=== PATIENT | female | born 1965 | race Caucasian/White ===

== ENCOUNTER 2016-05-26 16:25 | Emergency (ER) | payer OTHER ==
[2016-05-26] MEDS ORDERED: methylPREDNISolone INJ 125 MG/2 ML VIAL (J2930) As Ordered ONE (18:54)
[2016-05-26] MEDS ORDERED: IPRATROPIUM 0.5MG/ALBUTEROL 2.5MG INH SOL UD 3ML (DUONEB)(J7620) As Ordered ONE (18:56)
--- NOTE | 2016-05-26 19:17 | REP ---
Clinical: Cough. Technique: PA and lateral. Comparison: None. Findings: Left lower lobe/retrocardiac infiltrate compatible with acute pneumonia. No effusion. No pneumothorax. Mediastinum and cardiac silhouette normal. Skeletal structures intact. Impression: Left lower lobe infiltrate compatible with pneumonia. Follow-up to resolution recommended. Signed by Jesu Owen MD 05/26/2016 07:09 P
[2016-05-26 19:28] LABS: BASO # 0.1 K/mm3 (0.0-0.2); BASO % 1.7 % (0.0-1.0); EOS % 0.6 % (0.0-3.0); LARGE UNSTAINED CELL # 0.1 K/mm3 (0.0-0.4); LARGE UNSTAINED CELL % 1.8 % (0.0-4.0); LYMPH # 1.2 K/mm3 (1.5-4.5); LYMPH % 13.6 % (24.0-44.0); MEAN CORPUSCULAR HGB CONC 33.7 g/dl (32.0-36.5); MEAN CORPUSCULAR VOLUME 86.1 fl (80.0-96.0); MONO # 0.3 K/mm3 (0.0-0.8); MONO % 4.1 % (0.0-5.0); NEUTROPHILS % 78.2 % (36.0-66.0); PLATELET COUNT, AUTOMATED 288 k/mm3 (150-450); RED CELL DISTRIBUTION WIDTH 13.9 % (11.5-14.5); WHITE BLOOD COUNT 7.7 K/mm3 (4.0-10.0)
[2016-05-26 19:45] LABS: ANION GAP 11 MEQ/L (8-16); BLOOD UREA NITROGEN 10 MG/DL (7-18); CALCIUM LEVEL 8.5 MG/DL (8.5-10.1); CARBON DIOXIDE LEVEL 25 MEQ/L (21-32); CHLORIDE LEVEL 105 MEQ/L (98-107); CREATININE FOR GFR 0.66 MG/DL (0.55-1.02); GLOMERULAR FILTRATION RATE > 60.0 (>51); GLUCOSE, FASTING 155 MG/DL (70-105); POTASSIUM SERUM 3.6 MEQ/L (3.5-5.1); SODIUM LEVEL 141 MEQ/L (136-145)
[2016-05-26] MEDS ORDERED: LevoFLOXacin 500 MG TABLET As Ordered ONE (20:09)
[2016-05-26] MEDS ORDERED: LevoFLOXacin 250 MG TABLET As Ordered ONE (20:09)
--- NOTE | 2016-05-26 20:48 | EDDOCDS ---
Physician Documentation [facility] Name: Rosita Suero Age: 50 yrs Sex: Female : 1965 Arrival Date: 05/26/2016 Time: 16:25 Bed I5 / M5 Private MD: Molina Nolasco D Disposition: 05/26/16 20:26 Discharged to Home/Self Care. Impression: Pneumonia, unspecified organism - LEFT LOWER LOBE. - Condition is Stable. - Discharge Instructions: Pneumonia, Adult. - Prescriptions for Levaquin 750 mg Oral Tablet - take 1 tablet by ORAL route once daily for 5 days; 5 tablet. Albuterol Sulfate 90 mcg/actuation Inhalation HFA Aerosol Inhaler - inhale 2 puff by INHALATION route every 4 hours As needed; 1 Inhaler. - Medication Reconciliation, Local Pharmacy Hours form. - Follow up: Molina Nolasco; When: 1 - 2 days; Reason: Recheck today's complaints, Continuance of care. - Problem is new. - Symptoms have improved. - Notes: USE MEDICATIONS INSTRUTCED, FOLLOW UP WITH YOUR DOCTOR ON SATURDAY, RETURN TO THE ER IF THE SYMPTOMS WORSEN OR BECOME CONCERNING Historical: - Allergies: No known drug Allergies; - Home Meds: 1. Sertraline 75 mg twice a day 2. albuterol sulfate 90 mcg/actuation Inhl aepb 2 puffs every 4-6 hours (Last dose: 05/26/2016 12:30) - PMHx: Depression; - PSHx: rotator cuff repair; Tubal ligation; - Social history: Smoking status: Patient uses tobacco products, heavy tobacco smoker. No barriers to communication noted, The patient speaks fluent Portuguese, Speaks appropriately for age. - Family history: Not pertinent. - : The pt / caregiver states he / she is not on anticoagulants. Home medication list is obtained from the patient. - Exposure Risk Screening:: None identified. 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 3 in. (160.02 cm) (R); 20:44 BP 114 / 61; Pulse 74; Resp 20 S; Temp 98.3(O); Pulse Ox 91% on R/A; ms2 16:26 Body Mass Index 40.74 (104.33 kg, 160.02 cm) dd6 MDM: 18:41 -Blood Culture (Adults Only), peripheral from different site, or from device/port/PICC ck7 etc. if present ordered. 18:41 IV Saline Lock ordered. ck7 18:41 Solu-MEDROL 125 mg IVP once ordered. ck7 18:41 Albuterol-Ipratropium 3 ml Inhalation once ordered. ck7 18:41 Call Respiratory ordered. ck7 18:42 Call Respiratory complete. ms18 18:43 CBC with Diff Ordered. EDMS 18:43 MED Profile Ordered. EDMS 18:43 -Blood Culture Ordered. EDMS 18:43 Chest, 2 View (pa\E\lat) Ordered. EDMS 18:55 -Blood Culture (Adults Only), peripheral from different site, or from device/port/PICC ajs etc. if present complete. 18:57 BLOOD CULTURES Ordered. EDMS 19:30 Financial registration complete. zo 20:06 CBC with Diff Reviewed. ck7 20:06 MED Profile Reviewed. ck7 20:06 Chest, 2 View (pa\E\lat) Reviewed. ck7 20:07 levofloxacin 750 mg PO once ordered. ck7 20:19 [facility] Payment Agreement was scanned into [employer] and attached to record. zo Administered Medications: 19:01 Drug: Solu-MEDROL 125 mg [Solu-Medrol 500 mg intravenous solution (125 mg)] Route: IVP; ms2 Site: left antecubital; 19:02 Drug: Albuterol-Ipratropium 3 ml [ipratropium-albuterol 0.5 mg-3 mg(2.5 mg base)/3 mL rs5 nebulization soln (3 mL)] Route: Inhalation; 20:12 Drug: levofloxacin 750 mg [levofloxacin 250 mg tablet (3 tabs)] Route: PO; ms2 Signatures: Dispatcher [employer] EDMS Ronald Williamson RN RN ms2 Krystal Peterson Amanda ajs Kwaczala, Christopher, ENW-C RPA-Cck7 Luis Vieyra RN RN jmb Mirna Wilson RN RN ms18 Baltazar Krishna RT rs5 The chart was reviewed and I authenticate all verbal orders and agree with the evaluation and treatment provided.Attachments: 20:19 [facility] Payment Agreement zo MTDD
--- NOTE | 2016-05-26 20:48 | EDDOCDS ---
Nurse's Notes [facility] Name: Rosita Suero Age: 50 yrs Sex: Female : 1965 Arrival Date: 05/26/2016 Time: 16:25 Bed I5 / M5 Private MD: Molina Nolasco D Diagnosis: Pneumonia, unspecified organism-LEFT LOWER LOBE Presentation: 05/26 16:34 Presenting complaint: Patient states: Patient reports inability to breath. Seen at [facility] the other night but feels worse. Adult Sepsis Screening: The patient does not have new or worsening altered mentation. Patient's respiratory rate is less than 22. Systolic blood pressure is greater than 100. Patient has a qSOFA score of 0- Negative Sepsis Screen. Suicide/Homicide risk assessment- the patient denies having any suicidal and/or homicidal ideations and does not present with any other emotional, behavioral or mental health complaints. Status: Patient is not a information services consultant or dependent. Transition of care: patient was not received from another setting of care. 16:34 Acuity: JIMENEZ Level 3 [facility] 16:34 Method Of Arrival: Walkin/Carried/[facility]std [facility] 16:36 Presenting complaint: Patient states: Patient discharged with albuterol inhaler, last [facility] used four hours ago. Patient diagnosed with acute bronchitis at [place]. 16:39 Presenting complaint:. [facility] Triage Assessment: 16:36 General: Appears in no apparent distress, Behavior is appropriate for age, cooperative. [facility] Pain: Denies pain. Pt Declines HIV testing. Neurological: Level of Consciousness is awake, alert, obeys commands, Oriented to person, place, time, Vet Tech are equal bilaterally Speech is normal, Facial symmetry appears normal, Facial symmetry: tongue is midline. Respiratory: Airway is patent Respiratory effort is even, Respiratory pattern is regular. Derm: Skin is pink, warm & dry. Musculoskeletal: Range of motion intact in all extremities. 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 Sertraline 75 mg twice a day 2. albuterol sulfate 90 mcg/actuation Inhl aepb 2 puffs every 4-6 hours (Last dose: 05/26/2016 12:30) - PMHx: Depression; - PSHx: rotator cuff repair; Tubal ligation; - Social history: Smoking status: Patient uses tobacco products, heavy tobacco smoker. No barriers to communication noted, The patient speaks fluent Kazakh, Speaks appropriately for age. - Family history: Not pertinent. - : The pt / caregiver states he / she is not on anticoagulants. Home medication list is obtained from the patient. - Exposure Risk Screening:: None identified. Screenin:16 Screening information is obtained from the patient. Fall risk: No risks identified. ms2 Assistance ADL's: requires no assistance with activities of daily living. Abuse/DV Screen: The patient / caregiver reports he/she is: not in a situation that causes fear, pain or injury. Nutritional screening: No deficits noted. Advance Directives: Currently, there is no health care proxy. There is no active DNR order. There is no living will. There is no Power of Cdl B Driver. Advance directive information has not previously been placed in an [facility] medical record. Further advance directive information is declined. home support is adequate. Assessment: 16:42 General: Had patient take two puffs of albuterol inhaler while sitting at triage desk. jmb Patient in no apparent respiratory distress. Respirations equal, non labored. Color pink, no cyanosis present. . 19:00 General: Appears in no apparent distress, Behavior is cooperative, first contact with ms2 pt. Neurological: Level of Consciousness is awake, alert, obeys commands. Respiratory: No deficits noted. Airway is patent Respiratory effort is even, labored, Respiratory pattern is regular, symmetrical, audible wheezing noted. GI: Abdomen is obese. Derm: Skin is pink, warm & dry. Musculoskeletal: Range of motion intact in all extremities. 20:12 Adult Sepsis Screening: The patient does not have new or worsening altered mentation. ms2 Patient's respiratory rate is less than 22. Systolic blood pressure is greater than 100. Patient has a qSOFA score of 0- Negative Sepsis Screen. General: medicated per order. Neurological: No deficits noted. Respiratory: Airway is patent Respiratory effort is even, unlabored, Respiratory pattern is regular, symmetrical. Derm: Skin is pink, warm & dry. 20:45 General: Appears in no apparent distress, congested cough noted. Behavior is ms2 cooperative. Neurological: Level of Consciousness is awake, alert, obeys commands. Respiratory: Airway is patent Respiratory effort is even, unlabored, Respiratory pattern is regular, symmetrical. GI: Abdomen is non- distended. Derm: Skin is pink, warm & dry. Musculoskeletal: Range of motion intact in all extremities. Vital Signs: 16:26 BP 127 / 77; Pulse 82; Resp 18 S; Temp 96.7(O); Pulse Ox 95% on R/A; Weight 104.33 kg dd6 (R); Height 5 ft. 3 in. (160.02 cm) (R); 20:44 BP 114 / 61; Pulse 74; Resp 20 S; Temp 98.3(O); Pulse Ox 91% on R/A; ms2 16:26 Body Mass Index 40.74 (104.33 kg, 160.02 cm) dd6 Vitals: 16:26 Log In Time: May 26, 2016 at 16:24. dd6 ED Course: 16:26 Patient visited by Doug Trejo PCA. dd6 16:26 Molina Nolasco is Private Physician. dd6 16:26 Patient moved to Waiting dd6 16:28 Patient moved to Pre RCE dd6 16:35 Triage Initiated jmb 16:43 Patient visited by Luis Vieyra RN. jmb 18:06 Patient moved to Triage 1 jmb 18:14 [facility] ck7 18:14 Abril Tavera MD is Attending Physician. ck7 18:14 Patient visited by Edgardo Bolanos RPA-C. ck7 18:42 Patient moved to I5 / M5 mlb1 18:53 Inserted saline lock: 18 gauge in left antecubital area The patient tolerated the ms2 procedure well. No procedures done that require assistance. 19:06 -Blood Culture Sent. ms2 19:06 MED Profile Sent. ms2 19:07 CBC with Diff Sent. ms2 19:07 BLOOD CULTURES Sent. ms2 19:11 Patient visited by Guillermina Francisco RN. af2 19:17 The patient / caregiver is instructed regarding the plan of care and ED course. ms2 19:44 Patient visited by Guillermina Francisco RN. af2 19:54 Chest, 2 View (pa\E\lat) Returned. EDMS 20:13 The patient / caregiver is instructed regarding the plan of care and ED course. ms2 20:13 IV is intact, is free of redness or swelling. ms2 20:14 Patient visited by Edgardo Bolanos RPA-C. ck7 20:19 [facility] Payment Agreement was scanned into [employer] and attached to record. zo 20:26 Molina Nolasco is Referral Physician. ck7 20:44 Patient visited by Ronald Williamson RN. ms2 20:46 The patient / caregiver is instructed regarding the plan of care and ED course. ms2 20:46 Discontinued lock intact, bleeding controlled, pressure dressing applied, No ms2 redness/swelling at site. Administered Medications: 19:01 Drug: Solu-MEDROL 125 mg [Solu-Medrol 500 mg intravenous solution (125 mg)] Route: IVP; ms2 Site: left antecubital; 19:02 Drug: Albuterol-Ipratropium 3 ml [ipratropium-albuterol 0.5 mg-3 mg(2.5 mg base)/3 mL rs5 nebulization soln (3 mL)] Route: Inhalation; 20:12 Drug: levofloxacin 750 mg [levofloxacin 250 mg tablet (3 tabs)] Route: PO; ms2 Intake: 20:45 PO: 60.00ml; IV: 0.00ml; Total: 60.00ml. ms2 Output: 20:45 Urine: 0.00ml; Total: 0.00ml. ms2 RT: 19:02 Initial Med Neb Given as ordered Patient was instructed and evaluated on procedure rs5 Patient tolerated procedure well without adverse effect. Respiratory: Airway is patent Respiratory effort is even, unlabored, Respiratory pattern is regular symmetrical, Breath sounds are coarse bilaterally. Breath sounds are diminished Breath sounds with wheezes Reports shortness of breath at rest cough that is productive. Order Results: Lab Order: CBC with Diff; SPEC'M 05/26/16 19:07 Test: WHITE BLOOD COUNT; Value: 7.7; Range: 4.0-10.0; Units: K/mm3; Status: F Test: RED BLOOD COUNT; Value: 5.24; Range: 4.00-5.40; Units: M/mm3; Status: F Test: HEMOGLOBIN; Value: 15.2; Range: 12.0-16.0; Units: g/dl; Status: F Test: HEMATOCRIT; Value: 45.2; Range: 36.0-47.0; Units: %; Status: F Test: MEAN CORPUSCULAR VOLUME; Value: 86.1; Range: 80.0-96.0; Units: fl; Status: F Test: MEAN CORPUSCULAR HEMOGLOBIN; Value: 29.0; Range: 27.0-33.0; Units: pg; Status: F Test: MEAN CORPUSCULAR HGB CONC; Value: 33.7; Range: 32.0-36.5; Units: g/dl; Status: F Test: RED CELL DISTRIBUTION WIDTH; Value: 13.9; Range: 11.5-14.5; Units: %; Status: F Test: PLATELET COUNT, AUTOMATED; Value: 288; Range: 150-450; Units: k/mm3; Status: F Test: NEUTROPHILS %; Value: 78.2; Range: 36.0-66.0; Abnormal: Above high normal; Units: %; Status: F Test: LYMPH %; Value: 13.6; Range: 24.0-44.0; Abnormal: Below low normal; Units: %; Status: F Test: MONO %; Value: 4.1; Range: 0.0-5.0; Units: %; Status: F Test: EOS %; Value: 0.6; Range: 0.0-3.0; Units: %; Status: F Test: BASO %; Value: 1.7; Range: 0.0-1.0; Abnormal: Above high normal; Units: %; Status: F Test: LARGE UNSTAINED CELL %; Value: 1.8; Range: 0.0-4.0; Units: %; Status: F Test: NEUTROPHILS #; Value: 6.0; Range: 1.8-7.7; Units: K/mm3; Status: F Test: LYMPH #; Value: 1.2; Range: 1.5-4.5; Abnormal: Below low normal; Units: K/mm3; Status: F Test: MONO #; Value: 0.3; Range: 0.0-0.8; Units: K/mm3; Status: F Test: EOS #; Value: 0.0; Range: 0.0-0.50; Units: K/mm3; Status: F Test: BASO #; Value: 0.1; Range: 0.0-0.2; Units: K/mm3; Status: F Test: LARGE UNSTAINED CELL #; Value: 0.1; Range: 0.0-0.4; Units: K/mm3; Status: F Lab Order: ERIC GOTTI 05/26/16 19:07 Test: GLUCOSE, FASTING; Value: 155; Range: 70-105; Abnormal: Above high normal; Units: MG/DL; Status: F Test: BLOOD UREA NITROGEN; Value: 10; Range: 7-18; Units: MG/DL; Status: F Test: CREATININE FOR GFR; Value: 0.66; Range: 0.55-1.02; Units: MG/DL; Status: F Test: GLOMERULAR FILTRATION RATE; Value: > 60.0; Range: >51; Status: F Test: SODIUM LEVEL; Value: 141; Range: 136-145; Units: MEQ/L; Status: F Test: POTASSIUM SERUM; Value: 3.6; Range: 3.5-5.1; Units: MEQ/L; Status: F Test: CHLORIDE LEVEL; Value: 105; Range: 98-107; Units: MEQ/L; Status: F Test: CARBON DIOXIDE LEVEL; Value: 25; Range: 21-32; Units: MEQ/L; Status: F Test: ANION GAP; Value: 11; Range: 8-16; Units: MEQ/L; Status: F Test: CALCIUM LEVEL; Value: 8.5; Range: 8.5-10.1; Units: MG/DL; Status: F Test Note: ; Units are mL/min/1.73 m2 Chronic Kidney Disease Staging per NKF: Stage I & II GFR >=60 Normal to Mildly Decreased Stage III GFR 30-59 Moderately Decreased Stage IV GFR 15-29 Severely Decreased Stage V GFR <15 Very Little GFR Left ESRD GFR <15 on MIRROR INSTALLER Radiology Order: Chest, 2 View (pa\E\lat) Test: Chest, 2 View (pa\E\lat) REASON FOR EXAMINATION: Cough; Clinical: Cough.; ; Technique: PA and lateral.; ; Comparison: None.; ; Findings:; Left lower lobe/retrocardiac infiltrate compatible with acute pneumonia. No; effusion. No pneumothorax. Mediastinum and cardiac silhouette normal. Skeletal; structures intact.; ; Impression:; Left lower lobe infiltrate compatible with pneumonia. Follow-up to resolution; recommended.; ; ; Signed by; Jesu Owen MD 05/26/2016 07:09 P; Outcome: 20:26 Discharge ordered by Provider. ck7 20:46 Discharge Assessment: patient administered narcotics - no. The following High Risk ms2 Discharge criteria are identified: None. Discharged to home ambulatory, with significant other. Condition: stable. Discharge instructions given to patient, Instructed on discharge instructions, follow up and referral plans. medication usage, Demonstrated understanding of instructions, medications, Pt was receptive of discharge instructions/ teaching. Prescriptions given X 2 faxed. No special radiology studies were completed. Property sent home with patient. 20:47 Patient left the ED. ms2 Signatures: Dispatcher [employer] EDMS Ronald Williamson,RN RN ms2 Kar Villarreal RN RN mlb1 Krystal Peterson Daniell, NIPPING MACHINE OPERATOR NIPPING MACHINE OPERATOR dd6 Baltazar Krishna,RT RT rs5 Edgardo Bolanos, RPA-C RPA-Cck7 Luis VieyraRN RN Guillermina Jacob,RN RN af2 Corrections: (The following items were deleted from the chart) 16:40 16:36 Presenting complaint: Patient states: Patient discharged with albuterol inhaler, jasen last used four hours ago. jasen MTDAraceli
--- NOTE | 2016-05-28 21:48 | EDDOCDS ---
Physician Documentation [facility] Name: Rosita Suero Age: 50 yrs Sex: Female : 1965 Arrival Date: 05/26/2016 Time: 16:25 Bed I5 / M5 Private MD: Molina Nolasco D Disposition: 05/26/16 20:26 Discharged to Home/Self Care. Impression: Pneumonia, unspecified organism - LEFT LOWER LOBE. - Condition is Stable. - Discharge Instructions: Pneumonia, Adult. - Prescriptions for Levaquin 750 mg Oral Tablet - take 1 tablet by ORAL route once daily for 5 days; 5 tablet. Albuterol Sulfate 90 mcg/actuation Inhalation HFA Aerosol Inhaler - inhale 2 puff by INHALATION route every 4 hours As needed; 1 Inhaler. - Medication Reconciliation, Local Pharmacy Hours form. - Follow up: Molina Nolasco; When: 1 - 2 days; Reason: Recheck today's complaints, Continuance of care. - Problem is new. - Symptoms have improved. - Notes: USE MEDICATIONS INSTRUTCED, FOLLOW UP WITH YOUR DOCTOR ON SATURDAY, RETURN TO THE ER IF THE SYMPTOMS WORSEN OR BECOME CONCERNING Historical: - Allergies: No known drug Allergies; - Home Meds: 1. Sertraline 75 mg twice a day 2. albuterol sulfate 90 mcg/actuation Inhl aepb 2 puffs every 4-6 hours (Last dose: 05/26/2016 12:30) - PMHx: Depression; - PSHx: rotator cuff repair; Tubal ligation; - Social history: Smoking status: Patient uses tobacco products, heavy tobacco smoker. No barriers to communication noted, The patient speaks fluent [place], Speaks appropriately for age. - Family history: Not pertinent. - : The pt / caregiver states he / she is not on anticoagulants. Home medication list is obtained from the patient. - Exposure Risk Screening:: None identified. 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 3 in. (160.02 cm) (R); 20:44 BP 114 / 61; Pulse 74; Resp 20 S; Temp 98.3(O); Pulse Ox 91% on R/A; ms2 16:26 Body Mass Index 40.74 (104.33 kg, 160.02 cm) dd6 MDM: 18:41 -Blood Culture (Adults Only), peripheral from different site, or from device/port/PICC ck7 etc. if present ordered. 18:41 IV Saline Lock ordered. ck7 18:41 Solu-MEDROL 125 mg IVP once ordered. ck7 18:41 Albuterol-Ipratropium 3 ml Inhalation once ordered. ck7 18:41 Call Respiratory ordered. ck7 18:42 Call Respiratory complete. ms18 18:43 CBC with Diff Ordered. EDMS 18:43 MED Profile Ordered. EDMS 18:43 -Blood Culture Ordered. EDMS 18:43 Chest, 2 View (pa\E\lat) Ordered. EDMS 18:55 -Blood Culture (Adults Only), peripheral from different site, or from device/port/PICC ajs etc. if present complete. 18:57 BLOOD CULTURES Ordered. EDMS 19:30 Financial registration complete. zo 20:06 CBC with Diff Reviewed. ck7 20:06 MED Profile Reviewed. ck7 20:06 Chest, 2 View (pa\E\lat) Reviewed. ck7 20:07 levofloxacin 750 mg PO once ordered. ck7 20:19 [facility] Payment Agreement was scanned into [employer] and attached to record. zo 05/27 08:27 T-Sheet-- Draft Copy was scanned into [employer] and attached to record. [facility] Administered Medications: 05/26 19:01 Drug: Solu-MEDROL 125 mg [Solu-Medrol 500 mg intravenous solution (125 mg)] Route: IVP; ms2 Site: left antecubital; 19:02 Drug: Albuterol-Ipratropium 3 ml [ipratropium-albuterol 0.5 mg-3 mg(2.5 mg base)/3 mL rs5 nebulization soln (3 mL)] Route: Inhalation; 20:12 Drug: levofloxacin 750 mg [levofloxacin 250 mg tablet (3 tabs)] Route: PO; ms2 Signatures: Dispatcher [employer] EDMS Ronald Williamson RN RN ms2 [place], Britany Samuels Christopher, RPA-C RPA-Cck7 Luis VieyraRN RN Mirna Girard RN RN ms18 Khurram, Baltazar Arevalo RT rs5 The chart was reviewed and I authenticate all verbal orders and agree with the evaluation and treatment provided.Attachments: 20:19 [facility] Payment Agreement zo 05/27 08:27 T-Sheet-- Draft Copy [facility] Chart Complete MTDD
--- NOTE | 2016-05-28 21:48 | EDDOCDS ---
Physician Documentation [facility] Name: Rosita Suero Age: 50 yrs Sex: Female : 1965 Arrival Date: 05/26/2016 Time: 16:25 Bed I5 / M5 Private MD: Molina Nolasco D Disposition: 05/26/16 20:26 Discharged to Home/Self Care. Impression: Pneumonia, unspecified organism - LEFT LOWER LOBE. - Condition is Stable. - Discharge Instructions: Pneumonia, Adult. - Prescriptions for Levaquin 750 mg Oral Tablet - take 1 tablet by ORAL route once daily for 5 days; 5 tablet. Albuterol Sulfate 90 mcg/actuation Inhalation HFA Aerosol Inhaler - inhale 2 puff by INHALATION route every 4 hours As needed; 1 Inhaler. - Medication Reconciliation, Local Pharmacy Hours form. - Follow up: Molina Nolasco; When: 1 - 2 days; Reason: Recheck today's complaints, Continuance of care. - Problem is new. - Symptoms have improved. - Notes: USE MEDICATIONS INSTRUTCED, FOLLOW UP WITH YOUR DOCTOR ON SATURDAY, RETURN TO THE ER IF THE SYMPTOMS WORSEN OR BECOME CONCERNING Historical: - Allergies: No known drug Allergies; - Home Meds: 1. Sertraline 75 mg twice a day 2. albuterol sulfate 90 mcg/actuation Inhl aepb 2 puffs every 4-6 hours (Last dose: 05/26/2016 12:30) - PMHx: Depression; - PSHx: rotator cuff repair; Tubal ligation; - Social history: Smoking status: Patient uses tobacco products, heavy tobacco smoker. No barriers to communication noted, The patient speaks fluent Barbadian, Speaks appropriately for age. - Family history: Not pertinent. - : The pt / caregiver states he / she is not on anticoagulants. Home medication list is obtained from the patient. - Exposure Risk Screening:: None identified. 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 3 in. (160.02 cm) (R); 20:44 BP 114 / 61; Pulse 74; Resp 20 S; Temp 98.3(O); Pulse Ox 91% on R/A; ms2 16:26 Body Mass Index 40.74 (104.33 kg, 160.02 cm) dd6 MDM: 18:41 -Blood Culture (Adults Only), peripheral from different site, or from device/port/PICC ck7 etc. if present ordered. 18:41 IV Saline Lock ordered. ck7 18:41 Solu-MEDROL 125 mg IVP once ordered. ck7 18:41 Albuterol-Ipratropium 3 ml Inhalation once ordered. ck7 18:41 Call Respiratory ordered. ck7 18:42 Call Respiratory complete. ms18 18:43 CBC with Diff Ordered. EDMS 18:43 MED Profile Ordered. EDMS 18:43 -Blood Culture Ordered. EDMS 18:43 Chest, 2 View (pa\E\lat) Ordered. EDMS 18:55 -Blood Culture (Adults Only), peripheral from different site, or from device/port/PICC ajs etc. if present complete. 18:57 BLOOD CULTURES Ordered. EDMS 19:30 Financial registration complete. zo 20:06 CBC with Diff Reviewed. ck7 20:06 MED Profile Reviewed. ck7 20:06 Chest, 2 View (pa\E\lat) Reviewed. ck7 20:07 levofloxacin 750 mg PO once ordered. ck7 20:19 [facility] Payment Agreement was scanned into [employer] and attached to record. zo 05/27 08:27 T-Sheet-- Draft Copy was scanned into [employer] and attached to record. [facility] Administered Medications: 05/26 19:01 Drug: Solu-MEDROL 125 mg [Solu-Medrol 500 mg intravenous solution (125 mg)] Route: IVP; ms2 Site: left antecubital; 19:02 Drug: Albuterol-Ipratropium 3 ml [ipratropium-albuterol 0.5 mg-3 mg(2.5 mg base)/3 mL rs5 nebulization soln (3 mL)] Route: Inhalation; 20:12 Drug: levofloxacin 750 mg [levofloxacin 250 mg tablet (3 tabs)] Route: PO; ms2 Signatures: Dispatcher [employer] EDMS Ronald Williamson RN RN ms2 [place], Britany Samuels Christopher, RPA-C RPA-Cck7 Luis VieyraRN RN Mirna Girard RN RN ms18 Khurram, Baltazar Arevalo RT rs5 The chart was reviewed and I authenticate all verbal orders and agree with the evaluation and treatment provided.Attachments: 20:19 [facility] Payment Agreement zo 05/27 08:27 T-Sheet-- Draft Copy [facility] Chart Complete MTDD
--- NOTE | 2016-05-28 21:48 | EDDOCDS ---
Nurse's Notes [facility] Name: Rosita Suero Age: 50 yrs Sex: Female : 1965 Arrival Date: 05/26/2016 Time: 16:25 Bed I5 / M5 Private MD: Molina Nolasco D Diagnosis: Pneumonia, unspecified organism-LEFT LOWER LOBE Presentation: 05/26 16:34 Presenting complaint: Patient states: Patient reports inability to breath. Seen at [facility] the other night but feels worse. Adult Sepsis Screening: The patient does not have new or worsening altered mentation. Patient's respiratory rate is less than 22. Systolic blood pressure is greater than 100. Patient has a qSOFA score of 0- Negative Sepsis Screen. Suicide/Homicide risk assessment- the patient denies having any suicidal and/or homicidal ideations and does not present with any other emotional, behavioral or mental health complaints. 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 Transition of care: patient was not received from another setting of care. 16:34 Acuity: JIMENEZ Level 3 [facility] 16:34 Method Of Arrival: Walkin/Carried/Asstd [facility] 16:36 Presenting complaint: Patient states: Patient discharged with albuterol inhaler, last [facility] used four hours ago. Patient diagnosed with acute bronchitis at [place]. 16:39 Presenting complaint:. [facility] Triage Assessment: 16:36 General: Appears in no apparent distress, Behavior is appropriate for age, cooperative. [facility] Pain: Denies pain. Pt Declines HIV testing. Neurological: Level of Consciousness is awake, alert, obeys commands, Oriented to person, place, time, Surtass Analyst are equal bilaterally Speech is normal, Facial symmetry appears normal, Facial symmetry: tongue is midline. Respiratory: Airway is patent Respiratory effort is even, Respiratory pattern is regular. Derm: Skin is pink, warm & dry. Musculoskeletal: Range of motion intact in all extremities. 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 Sertraline 75 mg twice a day 2. albuterol sulfate 90 mcg/actuation Inhl aepb 2 puffs every 4-6 hours (Last dose: 05/26/2016 12:30) - PMHx: Depression; - PSHx: rotator cuff repair; Tubal ligation; - Social history: Smoking status: Patient uses tobacco products, heavy tobacco smoker. No barriers to communication noted, The patient speaks fluent Sami, Speaks appropriately for age. - Family history: Not pertinent. - : The pt / caregiver states he / she is not on anticoagulants. Home medication list is obtained from the patient. - Exposure Risk Screening:: None identified. Screenin:16 Screening information is obtained from the patient. Fall risk: No risks identified. ms2 Assistance ADL's: requires no assistance with activities of daily living. Abuse/DV Screen: The patient / caregiver reports he/she is: not in a situation that causes fear, pain or injury. Nutritional screening: No deficits noted. Advance Directives: Currently, there is no health care proxy. There is no active DNR order. There is no living will. There is no Power of Nurse Practitioner Physicians Assistant. Advance directive information has not previously been placed in an [facility] medical record. Further advance directive information is declined. home support is adequate. Assessment: 16:42 General: Had patient take two puffs of albuterol inhaler while sitting at triage desk. jmb Patient in no apparent respiratory distress. Respirations equal, non labored. Color pink, no cyanosis present. . 19:00 General: Appears in no apparent distress, Behavior is cooperative, first contact with ms2 pt. Neurological: Level of Consciousness is awake, alert, obeys commands. Respiratory: No deficits noted. Airway is patent Respiratory effort is even, labored, Respiratory pattern is regular, symmetrical, audible wheezing noted. GI: Abdomen is obese. Derm: Skin is pink, warm & dry. Musculoskeletal: Range of motion intact in all extremities. 20:12 Adult Sepsis Screening: The patient does not have new or worsening altered mentation. ms2 Patient's respiratory rate is less than 22. Systolic blood pressure is greater than 100. Patient has a qSOFA score of 0- Negative Sepsis Screen. General: medicated per order. Neurological: No deficits noted. Respiratory: Airway is patent Respiratory effort is even, unlabored, Respiratory pattern is regular, symmetrical. Derm: Skin is pink, warm & dry. 20:45 General: Appears in no apparent distress, congested cough noted. Behavior is ms2 cooperative. Neurological: Level of Consciousness is awake, alert, obeys commands. Respiratory: Airway is patent Respiratory effort is even, unlabored, Respiratory pattern is regular, symmetrical. GI: Abdomen is non- distended. Derm: Skin is pink, warm & dry. Musculoskeletal: Range of motion intact in all extremities. Vital Signs: 16:26 BP 127 / 77; Pulse 82; Resp 18 S; Temp 96.7(O); Pulse Ox 95% on R/A; Weight 104.33 kg dd6 (R); Height 5 ft. 3 in. (160.02 cm) (R); 20:44 BP 114 / 61; Pulse 74; Resp 20 S; Temp 98.3(O); Pulse Ox 91% on R/A; ms2 16:26 Body Mass Index 40.74 (104.33 kg, 160.02 cm) dd6 Vitals: 16:26 Log In Time: May 26, 2016 at 16:24. dd6 ED Course: 16:26 Patient visited by Doug Trejo PCA. dd6 16:26 Molina Nolasco is Private Physician. dd6 16:26 Patient moved to Waiting dd6 16:28 Patient moved to Pre RCE dd6 16:35 Triage Initiated jmb 16:43 Patient visited by Luis Vieyra RN. jmb 18:06 Patient moved to Triage 1 jmb 18:14 Edg[facility]anos R[facility]-C [facility]. ck7 18:14 Abril Tavera MD is Attending Physician. ck7 18:14 Patient visited by Edgardo Bolanos RPA-C. ck7 18:42 Patient moved to I5 / M5 mlb1 18:53 Inserted saline lock: 18 gauge in left antecubital area The patient tolerated the ms2 procedure well. No procedures done that require assistance. 19:06 -Blood Culture Sent. ms2 19:06 MED Profile Sent. ms2 19:07 CBC with Diff Sent. ms2 19:07 BLOOD CULTURES Sent. ms2 19:11 Patient visited by Guillermina Francisco RN. af2 19:17 The patient / caregiver is instructed regarding the plan of care and ED course. ms2 19:44 Patient visited by Guillermina Francisco RN. af2 19:54 Chest, 2 View (pa\E\lat) Returned. EDMS 20:13 The patient / caregiver is instructed regarding the plan of care and ED course. ms2 20:13 IV is intact, is free of redness or swelling. ms2 20:14 Patient visited by Edgardo Bolanos RPA-C. ck7 20:19 [facility] Payment Agreement was scanned into [employer] and attached to record. zo 20:26 Molina Nolasco is Referral Physician. ck7 20:44 Patient visited by Ronald Williamson RN. ms2 20:46 The patient / caregiver is instructed regarding the plan of care and ED course. ms2 20:46 Discontinued lock intact, bleeding controlled, pressure dressing applied, No ms2 redness/swelling at site. 05/27 08:27 T-Sheet-- Draft Copy was scanned into [employer] and attached to record. [facility] Administered Medications: 05/26 19:01 Drug: Solu-MEDROL 125 mg [Solu-Medrol 500 mg intravenous solution (125 mg)] Route: IVP; ms2 Site: left antecubital; 19:02 Drug: Albuterol-Ipratropium 3 ml [ipratropium-albuterol 0.5 mg-3 mg(2.5 mg base)/3 mL rs5 nebulization soln (3 mL)] Route: Inhalation; 20:12 Drug: levofloxacin 750 mg [levofloxacin 250 mg tablet (3 tabs)] Route: PO; ms2 Intake: 20:45 PO: 60.00ml; IV: 0.00ml; Total: 60.00ml. ms2 Output: 20:45 Urine: 0.00ml; Total: 0.00ml. ms2 RT: 19:02 Initial Med Neb Given as ordered Patient was instructed and evaluated on procedure rs5 Patient tolerated procedure well without adverse effect. Respiratory: Airway is patent Respiratory effort is even, unlabored, Respiratory pattern is regular symmetrical, Breath sounds are coarse bilaterally. Breath sounds are diminished Breath sounds with wheezes Reports shortness of breath at rest cough that is productive. Order Results: Lab Order: CBC with Diff; SPEC'M 05/26/16 19:07 Test: WHITE BLOOD COUNT; Value: 7.7; Range: 4.0-10.0; Units: K/mm3; Status: F Test: RED BLOOD COUNT; Value: 5.24; Range: 4.00-5.40; Units: M/mm3; Status: F Test: HEMOGLOBIN; Value: 15.2; Range: 12.0-16.0; Units: g/dl; Status: F Test: HEMATOCRIT; Value: 45.2; Range: 36.0-47.0; Units: %; Status: F Test: MEAN CORPUSCULAR VOLUME; Value: 86.1; Range: 80.0-96.0; Units: fl; Status: F Test: MEAN CORPUSCULAR HEMOGLOBIN; Value: 29.0; Range: 27.0-33.0; Units: pg; Status: F Test: MEAN CORPUSCULAR HGB CONC; Value: 33.7; Range: 32.0-36.5; Units: g/dl; Status: F Test: RED CELL DISTRIBUTION WIDTH; Value: 13.9; Range: 11.5-14.5; Units: %; Status: F Test: PLATELET COUNT, AUTOMATED; Value: 288; Range: 150-450; Units: k/mm3; Status: F Test: NEUTROPHILS %; Value: 78.2; Range: 36.0-66.0; Abnormal: Above high normal; Units: %; Status: F Test: LYMPH %; Value: 13.6; Range: 24.0-44.0; Abnormal: Below low normal; Units: %; Status: F Test: MONO %; Value: 4.1; Range: 0.0-5.0; Units: %; Status: F Test: EOS %; Value: 0.6; Range: 0.0-3.0; Units: %; Status: F Test: BASO %; Value: 1.7; Range: 0.0-1.0; Abnormal: Above high normal; Units: %; Status: F Test: LARGE UNSTAINED CELL %; Value: 1.8; Range: 0.0-4.0; Units: %; Status: F Test: NEUTROPHILS #; Value: 6.0; Range: 1.8-7.7; Units: K/mm3; Status: F Test: LYMPH #; Value: 1.2; Range: 1.5-4.5; Abnormal: Below low normal; Units: K/mm3; Status: F Test: MONO #; Value: 0.3; Range: 0.0-0.8; Units: K/mm3; Status: F Test: EOS #; Value: 0.0; Range: 0.0-0.50; Units: K/mm3; Status: F Test: BASO #; Value: 0.1; Range: 0.0-0.2; Units: K/mm3; Status: F Test: LARGE UNSTAINED CELL #; Value: 0.1; Range: 0.0-0.4; Units: K/mm3; Status: F Lab Order: MED Profile; SPEC'M 05/26/16 19:07 Test: GLUCOSE, FASTING; Value: 155; Range: 70-105; Abnormal: Above high normal; Units: MG/DL; Status: F Test: BLOOD UREA NITROGEN; Value: 10; Range: 7-18; Units: MG/DL; Status: F Test: CREATININE FOR GFR; Value: 0.66; Range: 0.55-1.02; Units: MG/DL; Status: F Test: GLOMERULAR FILTRATION RATE; Value: > 60.0; Range: >51; Status: F Test: SODIUM LEVEL; Value: 141; Range: 136-145; Units: MEQ/L; Status: F Test: POTASSIUM SERUM; Value: 3.6; Range: 3.5-5.1; Units: MEQ/L; Status: F Test: CHLORIDE LEVEL; Value: 105; Range: 98-107; Units: MEQ/L; Status: F Test: CARBON DIOXIDE LEVEL; Value: 25; Range: 21-32; Units: MEQ/L; Status: F Test: ANION GAP; Value: 11; Range: 8-16; Units: MEQ/L; Status: F Test: CALCIUM LEVEL; Value: 8.5; Range: 8.5-10.1; Units: MG/DL; Status: F Test Note: ; Units are mL/min/1.73 m2 Chronic Kidney Disease Staging per NKF: Stage I & II GFR >=60 Normal to Mildly Decreased Stage III GFR 30-59 Moderately Decreased Stage IV GFR 15-29 Severely Decreased Stage V GFR <15 Very Little GFR Left ESRD GFR <15 on DURAL MECHANIC Lab Order: -Blood Culture; SPEC'M 05/26/16 19:07 Test: BLOOD CULTURE; Value: No growth after 24 hours . All specimens observed; Status: F Test: BLOOD CULTURE; Value: for 5 days. Results final at that time.; Status: F Test: BLOOD CULTURE; Value: No Growth after 48 hours. All Specimens observed; Status: F Test: BLOOD CULTURE; Value: for 7 days. Results final at that time.; Status: F Lab Order: BLOOD CULTURES; SPEC'M 05/26/16 19:07 Test: BLOOD CULTURE; Value: No growth after 24 hours . All specimens observed; Status: F Test: BLOOD CULTURE; Value: for 5 days. Results final at that time.; Status: F Test: BLOOD CULTURE; Value: No Growth after 48 hours. All Specimens observed; Status: F Test: BLOOD CULTURE; Value: for 7 days. Results final at that time.; Status: F Radiology Order: Chest, 2 View (pa\E\lat) Test: Chest, 2 View (pa\E\lat) REASON FOR EXAMINATION: Cough; Clinical: Cough.; ; Technique: PA and lateral.; ; Comparison: None.; ; Findings:; Left lower lobe/retrocardiac infiltrate compatible with acute pneumonia. No; effusion. No pneumothorax. Mediastinum and cardiac silhouette normal. Skeletal; structures intact.; ; Impression:; Left lower lobe infiltrate compatible with pneumonia. Follow-up to resolution; recommended.; ; ; Signed by; Jesu Owen MD 05/26/2016 07:09 P; Outcome: 20:26 Discharge ordered by Provider. ck7 20:46 Discharge Assessment: patient administered narcotics - no. The following High Risk ms2 Discharge criteria are identified: None. Discharged to home ambulatory, with significant other. Condition: stable. Discharge instructions given to patient, Instructed on discharge instructions, follow up and referral plans. medication usage, Demonstrated understanding of instructions, medications, Pt was receptive of discharge instructions/ teaching. Prescriptions given X 2 faxed. No special radiology studies were completed. Property sent home with patient. 20:47 Patient left the ED. ms2 Signatures: Dispatcher [employer] EDMS Ronald WilliamsonRN RN ms2 Kar Villarreal RN RN mlb1 Krystal Peterson Daniell, PASTEURISER OPERATOR PASTEURISER OPERATOR dd6 Baltazar Krishna,RT RT rs5 Edgardo Bolanos, RPA-C RPA-Cck7 Luis Vieyra RN RN Guillermina JacobRN RN af2 Abril Paulson Corrections: (The following items were deleted from the chart) 16:40 16:36 Presenting complaint: Patient states: Patient discharged with albuterol inhaler, jmb last used four hours ago. jasen Chart Complete MTDD
== END 2016-05-26 20:47 | disposition home or self-care (01) ==
LOC: M ED 16:25
DX: J18.1 Lobar pneumonia, unspecified organism (principal); F32.9 Major depressive disorder, single episode, unspecified; F17.200 Nicotine dependence, unspecified, uncomplicated; Z79.51 Long term (current) use of inhaled steroids; Z79.899 Other long term (current) drug therapy
CPT/HCPCS: 71020; 80048; 85025; 87040; 94640; 96374; 99284; J2930

== ENCOUNTER → 2016-09-14 | Outpatient (REF) | payer OTHER ==
[2016-09-14 11:17] LABS: BASO # 0.1 K/mm3 (0.0-0.2); BASO % 0.8 % (0.0-1.0); EOS # 0.3 K/mm3 (0.0-0.50); EOS % 3.6 % (0.0-3.0); LARGE UNSTAINED CELL # 0.1 K/mm3 (0.0-0.4); LARGE UNSTAINED CELL % 1.3 % (0.0-4.0); LYMPH # 2.6 K/mm3 (1.5-4.5); LYMPH % 31.1 % (24.0-44.0); MEAN CORPUSCULAR HEMOGLOBIN 30.2 pg (27.0-33.0); MEAN CORPUSCULAR HGB CONC 33.5 g/dl (32.0-36.5); MEAN CORPUSCULAR VOLUME 90.3 fl (80.0-96.0); MONO # 0.4 K/mm3 (0.0-0.8); MONO % 5.3 % (0.0-5.0); NEUTROPHILS # 4.6 K/mm3 (1.8-7.7); NEUTROPHILS % 57.9 % (36.0-66.0); PLATELET COUNT, AUTOMATED 338 k/mm3 (150-450); RED CELL DISTRIBUTION WIDTH 12.9 % (11.5-14.5)
[2016-09-14 11:33] LABS: ALBUMIN 3.5 GM/DL (3.2-5.2); ALBUMIN/GLOBULIN RATIO 1.06 (1.00-1.93); ALKALINE PHOSPHATASE 91 U/L (45-117); ALT/SGPT 23 U/L (12-78); AMYLASE 36 U/L (25-115); ANION GAP 9 MEQ/L (8-16); AST/SGOT 10 U/L (15-37); BILIRUBIN,TOTAL 0.3 MG/DL (0.2-1.0); BLOOD UREA NITROGEN 13 MG/DL (7-18); CALCIUM LEVEL 8.4 MG/DL (8.5-10.1); CARBON DIOXIDE LEVEL 28 MEQ/L (21-32); CHLORIDE LEVEL 106 MEQ/L (98-107); GLOMERULAR FILTRATION RATE > 60.0 (>51); GLUCOSE, FASTING 95 MG/DL (70-105); POTASSIUM SERUM 4.3 MEQ/L (3.5-5.1); SODIUM LEVEL 143 MEQ/L (136-145); TOTAL PROTEIN 6.8 GM/DL (6.4-8.2)
== END ==
LOC: M SFHCCLAY 08:11
PROVIDERS: ATTEND Family Medicine
DX: R10.84 Generalized abdominal pain (principal)

== ENCOUNTER → 2017-02-04 | Outpatient (REF) | payer OTHER ==
[2017-02-04 12:29] LABS: ALBUMIN 3.4 GM/DL (3.2-5.2); ALKALINE PHOSPHATASE 85 U/L (45-117); ALT/SGPT 18 U/L (12-78); ANION GAP 9 MEQ/L (8-16); AST/SGOT 8 U/L (15-37); BILIRUBIN,TOTAL 0.4 MG/DL (0.2-1.0); BLOOD UREA NITROGEN 8 MG/DL (7-18); CALCIUM LEVEL 8.7 MG/DL (8.5-10.1); CARBON DIOXIDE LEVEL 27 MEQ/L (21-32); CHLORIDE LEVEL 105 MEQ/L (98-107); CHOLESTEROL LEVEL 226 MG/DL (<200); CREATININE FOR GFR 0.64 MG/DL (0.55-1.02); GLOMERULAR FILTRATION RATE > 60.0 (>51); GLUCOSE, FASTING 87 MG/DL (70-105); SODIUM LEVEL 141 MEQ/L (136-145); TOTAL PROTEIN 6.5 GM/DL (6.4-8.2); TRIGLYCERIDES LEVEL 104 MG/DL (<150)
== END ==
LOC: M SFHCCLAY 08:02
PROVIDERS: ATTEND Family Medicine
DX: E78.5 Hyperlipidemia, unspecified (principal)

== ENCOUNTER → 2017-04-08 | Outpatient (REF) | payer OTHER | LOC: M SFHCCLAY 16:29 | PROVIDERS: ATTEND Family Medicine | DX: R30.0 Dysuria (principal) ==

== ENCOUNTER → 2017-05-03 | Outpatient (REF) | payer OTHER | LOC: M SFHCCLAY 16:39 | PROVIDERS: ATTEND Family Medicine | DX: R30.0 Dysuria (principal) ==

== ENCOUNTER → 2018-01-21 | Outpatient (REF) | payer OTHER ==
[2018-01-22 12:03] LABS: BASO # 0.1 10^3/uL (0.0-0.2); BASO % 0.8 % (0.0-1.0); EOS # 0.5 10^3/uL (0.0-0.50); EOS % 5.4 % (0.0-3.0); HEMATOCRIT 45.5 % (36.0-47.0); HEMOGLOBIN 15.1 g/dl (12.0-15.5); IMMATURE GRANULOCYTE % 0.4 % (0-3.0); LYMPH # 3.2 10^3/uL (1.5-4.5); LYMPH % 34.4 % (24.0-44.0); MEAN CORPUSCULAR HEMOGLOBIN 29.8 pg (27.0-33.0); MEAN CORPUSCULAR HGB CONC 33.2 g/dl (32.0-36.5); MEAN CORPUSCULAR VOLUME 89.7 fl (80.0-96.0); MONO # 0.5 10^3/uL (0.0-0.8); MONO % 5.2 % (0.0-5.0); NEUTROPHILS % 53.8 % (36.0-66.0); PLATELET COUNT, AUTOMATED 348 10^3/uL (150-450); RED BLOOD COUNT 5.07 10^6/uL (4.00-5.40); RED CELL DISTRIBUTION WIDTH 13.2 % (11.5-14.5); WHITE BLOOD COUNT 9.3 10^3/uL (4.0-10.0)
[2018-01-22 12:26] LABS: ALBUMIN 3.5 GM/DL (3.2-5.2); ALBUMIN/GLOBULIN RATIO 0.92 (1.00-1.93); ALKALINE PHOSPHATASE 103 U/L (45-117); ALT/SGPT 24 U/L (12-78); ANION GAP 6 MEQ/L (8-16); AST/SGOT 15 U/L (7-37); BILIRUBIN,TOTAL 0.4 MG/DL (0.2-1.0); BLOOD UREA NITROGEN 8 MG/DL (7-18); CALCIUM LEVEL 8.8 MG/DL (8.5-10.1); CARBON DIOXIDE LEVEL 30 MEQ/L (21-32); CHLORIDE LEVEL 106 MEQ/L (98-107); CHOLESTEROL LEVEL 262 MG/DL (<200); CHOLESTEROL RISK RATIO 4.517 (<5); GLOMERULAR FILTRATION RATE > 60.0 (>51); GLUCOSE, FASTING 84 MG/DL (70-100); HDL CHOLESTEROL 58 MG/DL (>40); LDL CHOLESTEROL 179 MG/DL (<100); NON-HDL-C 204 MG/DL; POTASSIUM SERUM 4.3 MEQ/L (3.5-5.1); SODIUM LEVEL 142 MEQ/L (136-145); TOTAL PROTEIN 7.3 GM/DL (6.4-8.2); TRIGLYCERIDES LEVEL 124 MG/DL (<150)
== END ==
LOC: M SFHCCLAY 14:57
DX: E78.5 Hyperlipidemia, unspecified (principal); R42 Dizziness and giddiness; R55 Syncope and collapse
CPT/HCPCS: 84443

== ENCOUNTER → 2018-02-06 | Outpatient (REF) | payer OTHER | LOC: M SFHCCLAY 13:19 | DX: N39.0 Urinary tract infection, site not specified (principal) ==

== ENCOUNTER → 2019-04-13 | Outpatient (CLI) | payer OTHER ==
--- NOTE | 2019-04-13 14:26 | REP ---
Two-view chest: 04/13/2019. Indication: Cough. Comparison: 05/26/2016. Findings: Minimal atelectasis is noted within the left lower lobe. No air space consolidations are present. There is no pleural effusion or pneumothorax. The cardiac silhouette is within normal limits of size. Impression: No acute cardiopulmonary process. Electronically Signed by Charly Blanc DO 04/13/2019 02:18 P
== END ==
LOC: M CLY 13:51
PROVIDERS: ATTEND Family Medicine
DX: R05 Cough (principal)

== ENCOUNTER → 2020-02-04 | Outpatient (CLI) | payer OTHER ==
[2020-02-04 16:55] LABS: BASO # 0.1 10^3/uL (0.0-0.2); BASO % 0.7 % (0.0-1.0); EOS # 0.3 10^3/uL (0.0-0.5); EOS % 3.8 % (0.0-3.0); HEMATOCRIT 43.9 % (36.0-47.0); HEMOGLOBIN 13.9 g/dl (12.0-15.5); LYMPH # 2.6 10^3/uL (1.5-5.0); LYMPH % 30.7 % (24.0-44.0); MEAN CORPUSCULAR HEMOGLOBIN 29.2 pg (27.0-33.0); MEAN CORPUSCULAR HGB CONC 31.7 g/dl (32.0-36.5); MEAN CORPUSCULAR VOLUME 92.2 fl (80.0-96.0); MONO # 0.7 10^3/uL (0.0-0.8); MONO % 7.6 % (0.0-5.0); NEUTROPHILS # 4.9 10^3/uL (1.5-8.5); NEUTROPHILS % 56.7 % (36.0-66.0); PLATELET COUNT, AUTOMATED 359 10^3/uL (150-450); RED BLOOD COUNT 4.76 10^6/uL (4.00-5.40); WHITE BLOOD COUNT 8.6 10^3/uL (4.0-10.0)
[2020-02-04 17:06] LABS: ALBUMIN 3.5 GM/DL (3.2-5.2); ALT/SGPT 39 U/L (12-78); BILIRUBIN,TOTAL 0.4 MG/DL (0.2-1.0); BLOOD UREA NITROGEN 13 MG/DL (7-18); CALCIUM LEVEL 9.2 MG/DL (8.5-10.1); CARBON DIOXIDE LEVEL 29 MEQ/L (21-32); CHLORIDE LEVEL 107 MEQ/L (98-107); CHOLESTEROL LEVEL 263 MG/DL (<200); CHOLESTEROL RISK RATIO 3.371 (<5); CREATININE FOR GFR 0.73 MG/DL (0.55-1.30); GLOMERULAR FILTRATION RATE > 60.0 (>51); GLUCOSE, FASTING 91 MG/DL (70-100); HDL CHOLESTEROL 78 MG/DL (>40); LDL CHOLESTEROL 159 MG/DL (<100); MAGNESIUM LEVEL 2.2 MG/DL (1.8-2.4); NON-HDL-C 185 MG/DL; POTASSIUM SERUM 4.2 MEQ/L (3.5-5.1); SODIUM LEVEL 141 MEQ/L (136-145); TRIGLYCERIDES LEVEL 131 MG/DL (<150)
--- NOTE | 2020-02-12 08:05 | REP ---
CHEST X-RAY: 2-VIEWS HISTORY: Shortness of breath. COMPARISON: 04/13/2019. FINDINGS: The lungs are well-inflated and clear. The pleural angles are sharp. The heart size is normal. There are degenerative changes in the thoracic spine as before. Pulmonary vasculature is not increased. IMPRESSION: No active disease. MTDD
== END ==
LOC: M CLY 12:01
PROVIDERS: ATTEND Family Medicine
DX: R06.02 Shortness of breath (principal); R05 Cough

== ENCOUNTER → 2021-08-08 | Outpatient (REF) | payer OTHER ==
[~2021-08-08] MED LIST: BREO1INH INH; VENL37.598 PO; ZOLP10TA2 PO
[2021-08-09 11:35] LABS: BASO # 0.1 10^3/uL (0.0-0.2); BASO % 0.9 % (0.0-1.0); EOS # 0.1 10^3/uL (0.0-0.5); EOS % 1.8 % (0.0-3.0); HEMATOCRIT 46.8 % (36.0-47.0); HEMOGLOBIN 15.1 g/dl (12.0-15.5); LYMPH # 2.4 10^3/uL (1.5-5.0); LYMPH % 30.4 % (24.0-44.0); MEAN CORPUSCULAR HGB CONC 32.3 g/dl (32.0-36.5); MONO # 0.5 10^3/uL (0.0-0.8); MONO % 6.3 % (2.0-8.0); NEUTROPHILS # 4.8 10^3/uL (1.5-8.5); NEUTROPHILS % 59.8 % (36.0-66.0); PLATELET COUNT, AUTOMATED 391 10^3/uL (150-450); WHITE BLOOD COUNT 7.9 10^3/uL (4.0-10.0)
[2021-08-09 11:52] LABS: ALBUMIN 3.8 GM/DL (3.2-5.2); ALT/SGPT 34 U/L (12-78); BILIRUBIN,TOTAL 0.5 MG/DL (0.2-1.0); BLOOD UREA NITROGEN 12 MG/DL (7-18); CALCIUM LEVEL 9.4 MG/DL (8.5-10.1); CARBON DIOXIDE LEVEL 30 MEQ/L (21-32); CHLORIDE LEVEL 107 MEQ/L (98-107); CHOLESTEROL LEVEL 282 MG/DL (<200); CHOLESTEROL RISK RATIO 4.147 (<5); CREATININE FOR GFR 0.78 MG/DL (0.55-1.30); GLOMERULAR FILTRATION RATE > 60.0 (>51); GLUCOSE, FASTING 108 MG/DL (70-100); HDL CHOLESTEROL 68 MG/DL (>40); LDL CHOLESTEROL 193 MG/DL (<100); NON-HDL-C 214 MG/DL; POTASSIUM SERUM 3.9 MEQ/L (3.5-5.1); SODIUM LEVEL 141 MEQ/L (136-145); TOTAL PROTEIN 7.5 GM/DL (6.4-8.2); TRIGLYCERIDES LEVEL 107 MG/DL (<150)
== END ==
LOC: M SFHCCLAY 13:51
PROVIDERS: ATTEND Family Medicine
DX: Z01.818 Encounter for other preprocedural examination (principal); E78.5 Hyperlipidemia, unspecified

== ENCOUNTER → 2021-08-08 | Outpatient (CLI) | payer OTHER | LOC: M CLY 13:58 | PROVIDERS: ATTEND Family Medicine | DX: J44.9 Chronic obstructive pulmonary disease, unspecified (principal) ==

== ENCOUNTER → 2021-08-18 | Outpatient (CLI) | payer OTHER | LOC: M LABSMTC 09:34 | PROVIDERS: ATTEND Anesthesiology | DX: Z01.812 Encounter for preprocedural laboratory examination (principal); Z20.822 Contact with and (suspected) exposure to COVID-19 ==

== ENCOUNTER 2021-08-23 06:03 | Day surgery (SDC) | payer OTHER ==
[~2021-08-23] VITALS: Ht 160 cm; Wt 109.8 kg
[~2021-08-23 06:03] MED LIST changes: +LIDOCAINE 1% MDV 20ML VIAL SQ PRN
[2021-08-23] MEDS ORDERED: LR 1,000 ML IV ONE (06:30)
[2021-08-23] MEDS ORDERED: ACETAMINOPHEN *IV* 1,000 MG IV ONE ×2 (07:00)
[2021-08-23] MEDS ORDERED: ceFAZolin SOD 2 GM in IV 1 EA IV ONE (07:00)
[2021-08-23] MEDS ORDERED: BUPIVACAINE/EPIN 0.25% 30 ML VIAL As Ordered ONE (07:11)
[2021-08-23] MEDS ORDERED: FLUORESCEIN 10% (100MG/ML) 5 ML VIAL As Ordered ONE (07:11)
[2021-08-23] MEDS ORDERED: propofoL 200 MG/20 ML VIAL As Ordered ONE (07:15)
[2021-08-23] MEDS ORDERED: SUGAMMADEX SODIUM 500 MG/5 ML VIAL (BRIDION) As Ordered ONE (07:15)
[2021-08-23] MEDS ORDERED: ONDANSETRON 4MG/2ML VIAL As Ordered ONE ×2 (07:15→09:36)
[2021-08-23] MEDS ORDERED: fentaNYL 100 MCG/2 ML INJECTION As Ordered ONE ×2 (07:15→09:20)
[2021-08-23] MEDS ORDERED: ACETAMINOPHEN 1000MG 100ML IV BTL (OFIRMEV) (J0131 PER 10MG) As Ordered ONE (07:15)
[2021-08-23] MEDS ORDERED: MIDAZOLAM INJ 2MG/2ML VIAL (J2250 PER 1MG) As Ordered ONE (07:15)
[2021-08-23] MEDS ORDERED: ROCURONIUM BROMIDE 50 MG/5 ML VIAL As Ordered ONE (07:15)
[2021-08-23] MEDS ORDERED: KETOROLAC 60MG 2ML VIAL As Ordered ONE (07:15)
[2021-08-23] MEDS ORDERED: METOCLOPRAMIDE INJ 10MG/2ML VIAL (J2765 PER 1) As Ordered ONE (07:15)
[2021-08-23] MEDS ORDERED: dexameTHASONE 4 MG/ML 1ML VIAL (J1100 PER 1MG) As Ordered ONE (07:15)
[2021-08-23] MEDS ORDERED: LIDOCAINE 2% 100MG/5ML SDV (FOR ANES.) As Ordered ONE (07:15)
[2021-08-23] MEDS ORDERED: SCOPOLAMINE 1MG TRANSDERMAL PATCH TOP ONE (07:30)
[2021-08-23] MEDS ORDERED: HYDROmorphone HCL 2MG/ML 1ML VIAL As Ordered ONE (08:13)
[2021-08-23] MEDS ORDERED: hydrALAZINE 20MG/ML 1ML VIAL (J0360 PER 20MG) As Ordered ONE (08:41)
[2021-08-23] MEDS ORDERED: LABETALOL 100MG/20ML VIAL As Ordered ONE (08:41)
[2021-08-23] MEDS ORDERED: PERC5TAB12 PO (09:17)
[2021-08-23] MEDS ORDERED: ALBUTEROL SULFATE 2.5 MG/0.5 ML INH NEB SOLN As Ordered ONE (09:20)
[2021-08-23] MEDS: fentaNYL 100 MCG/2 ML INJECTION IV PRN ×2 (09:22→09:28)
[2021-08-23] MEDS ORDERED: oxyCODONE 5MG TAB PO PRN (09:45)
[2021-08-23] MEDS ORDERED: PROMETHAZINE 25MG/ML 1ML VIAL IV PRN (09:45)
[2021-08-23] MEDS ORDERED: ONDANSETRON 4MG/2ML VIAL IV PRN (09:45)
[2021-08-23] MEDS ORDERED: LR 1,000 ML IV SCH ×2 (09:45→09:55)
[2021-08-23] MEDS ORDERED: dexameTHASONE 4 MG/ML 1ML VIAL (J1100 PER 1MG) IV ONE (09:50)
[2021-08-23] MEDS ORDERED: PERCOCET 5MG/325MG TAB PO PRN (09:50)
[2021-08-23] MEDS ORDERED: ALBUTEROL SULFATE 2.5 MG/0.5 ML INH NEB SOLN INH ONE (09:50)
[2021-08-23] MEDS ORDERED: SIMETHICONE 80MG CHEW TAB PO SCH (12:00)
[2021-08-23 13:30] VITALS: BP 125/63
[2021-08-23] MEDS ORDERED: IBUPROFEN 800 MG TAB PO SCH (17:00)
== END 2021-08-23 14:00 | disposition home or self-care (01) ==
LOC: M SDC 06:03
PROVIDERS: ATTEND Obstetrics & Gynecology
DX: N95.0 Postmenopausal bleeding (principal); N84.0 Polyp of corpus uteri; J45.909 Unspecified asthma, uncomplicated; J44.9 Chronic obstructive pulmonary disease, unspecified; R32 Unspecified urinary incontinence; Z86.2 Personal history of diseases of the blood and blood-forming organs and certain disorders involving the immune mechanism; Z79.899 Other long term (current) drug therapy
CPT/HCPCS: 36415; 58571; 86850; 86900; 86901; 88307; J0131; J0360; J0690; J1100; J1170; J1885; J2250; J2405; J2550; J2765; J3010; S2900

== ENCOUNTER → 2022-08-17 | Outpatient (REF) | payer OTHER ==
[~2022-08-17] MED LIST changes: -LIDOCAINE 1% MDV 20ML VIAL SQ PRN; +PERC5TAB12 PO
[2022-08-17 17:20] LABS: BASO # 0.1 10^3/uL (0.0-0.2); BASO % 0.9 % (0.0-1.0); EOS # 0.2 10^3/uL (0.0-0.5); EOS % 2.7 % (0.0-3.0); HEMATOCRIT 47.2 % (36.0-47.0); HEMOGLOBIN 15.3 g/dl (12.0-15.5); LYMPH # 2.5 10^3/uL (1.5-5.0); LYMPH % 37.9 % (24.0-44.0); MEAN CORPUSCULAR HEMOGLOBIN 28.8 pg (27.0-33.0); MEAN CORPUSCULAR HGB CONC 32.4 g/dl (32.0-36.5); MEAN CORPUSCULAR VOLUME 88.7 fl (80.0-96.0); MONO # 0.4 10^3/uL (0.0-0.8); MONO % 5.7 % (2.0-8.0); NEUTROPHILS # 3.5 10^3/uL (1.5-8.5); NEUTROPHILS % 52.2 % (36.0-66.0); PLATELET COUNT, AUTOMATED 397 10^3/uL (150-450); RED BLOOD COUNT 5.32 10^6/uL (4.00-5.40); WHITE BLOOD COUNT 6.7 10^3/uL (4.0-10.0)
[2022-08-17 17:34] LABS: ALBUMIN 3.7 G/DL (3.2-5.2); ALKALINE PHOSPHATASE 81 U/L (46-116); ALT/SGPT 25 U/L (7.0-40); AST/SGOT 19 U/L (<34); BILIRUBIN,TOTAL 0.5 MG/DL (0.3-1.2); BLOOD UREA NITROGEN 11 MG/DL (9-23); CALCIUM LEVEL 9.1 MG/DL (8.5-10.1); CARBON DIOXIDE LEVEL 28 MMOL/L (20-31); CHLORIDE LEVEL 107 MMOL/L (98-107); CHOLESTEROL LEVEL 198 MG/DL (<200); GLOMERULAR FILTRATION RATE > 60.0 (>51); GLUCOSE, FASTING 121 MG/DL (60-100); HDL CHOLESTEROL 44.9 MG/DL (>40); LDL CHOLESTEROL 130.9 MG/DL (<100); NON-HDL-C 153.1 MG/DL; SODIUM LEVEL 143 MMOL/L (136-145); TRIGLYCERIDES LEVEL 111 MG/DL (<150)
== END ==
LOC: M SFHCCLAY 11:08
PROVIDERS: ATTEND Family Medicine
DX: J44.9 Chronic obstructive pulmonary disease, unspecified (principal); E78.5 Hyperlipidemia, unspecified

== ENCOUNTER → 2022-08-17 | Outpatient (CLI) | payer OTHER | LOC: M CLY 11:26 | PROVIDERS: ATTEND Family Medicine | DX: J44.9 Chronic obstructive pulmonary disease, unspecified (principal) ==

== ENCOUNTER → 2024-03-16 | Outpatient (REF) | payer OTHER ==
[2024-03-16 18:09] LABS: HEMATOCRIT 49.1 % (36.0-47.0); HEMOGLOBIN 15.8 g/dl (12.0-15.5); MEAN CORPUSCULAR HEMOGLOBIN 29.6 pg (27.0-33.0); MEAN CORPUSCULAR HGB CONC 32.2 g/dl (32.0-36.5); MEAN CORPUSCULAR VOLUME 92.1 fl (80.0-96.0); PLATELET COUNT, AUTOMATED 359 10^3/uL (150-450); RED BLOOD COUNT 5.33 10^6/uL (4.00-5.40); WHITE BLOOD COUNT 6.7 10^3/uL (4.0-10.0)
[2024-03-16 18:40] LABS: HEMOGLOBIN A1c 5.2 % (4.0-6.0)
[2024-03-16 18:46] LABS: ALBUMIN 3.8 G/DL (3.2-5.2); ALKALINE PHOSPHATASE 104 U/L (35-104); ALT/SGPT 34 U/L (7.0-40); AST/SGOT 19 U/L (<34); BILIRUBIN,TOTAL 0.4 MG/DL (0.3-1.2); BLOOD UREA NITROGEN 15 MG/DL (9-23); CALCIUM LEVEL 10.1 MG/DL (8.5-10.1); CARBON DIOXIDE LEVEL 27 MMOL/L (20-31); CHLORIDE LEVEL 106 MMOL/L (98-107); CHOLESTEROL LEVEL 273 MG/DL (<200); CHOLESTEROL RISK RATIO 4.16 (<5); CREATININE FOR GFR 0.81 MG/DL (0.55-1.30); GLOMERULAR FILTRATION RATE > 60.0 (>51); GLUCOSE, FASTING 101 MG/DL (60-100); HDL CHOLESTEROL 65.6 MG/DL (>40); LDL CHOLESTEROL 183.2 MG/DL (<100); NON-HDL-C 207.4 MG/DL; POTASSIUM SERUM 4.5 MMOL/L (3.5-5.1); SODIUM LEVEL 144 MMOL/L (136-145); TOTAL PROTEIN 7.5 G/DL (5.7-8.2); TRIGLYCERIDES LEVEL 121 MG/DL (<150)
== END ==
LOC: M SFHCCLAY 13:29
PROVIDERS: ATTEND Family Medicine
DX: E78.5 Hyperlipidemia, unspecified (principal); R73.01 Impaired fasting glucose

== ENCOUNTER → 2025-03-26 | Outpatient (REF) | payer OTHER ==
[~2025-03-26] MED LIST changes: +ZOLP10TA11 PO; -ZOLP10TA2 PO
[2025-03-26 18:26] LABS: PLATELET COUNT, AUTOMATED 370 10^3/uL (150-450)
[2025-03-26 18:34] LABS: ALT/SGPT 28 U/L (7.0-40); AST/SGOT 20 U/L (<34); CALCIUM LEVEL 9.2 MG/DL (8.3-10.6); CARBON DIOXIDE LEVEL 28 MMOL/L (20-31); CHLORIDE LEVEL 105 MMOL/L (98-107); CHOLESTEROL LEVEL 269 MG/DL (<200); CHOLESTEROL RISK RATIO 3.88 (<5); CREATININE FOR GFR 0.74 MG/DL (0.55-1.30); GLOMERULAR FILTRATION RATE > 90.0 (>45); LDL CHOLESTEROL 174.5 MG/DL (<100); NON-HDL-C 199.7 MG/DL; POTASSIUM SERUM 4.0 MMOL/L (3.5-5.1); SODIUM LEVEL 143 MMOL/L (136-145); TRIGLYCERIDES LEVEL 126 MG/DL (<150)
[2025-03-26 19:42] LABS: ESTIMATED AVERAGE GLUCOSE 120.0 MG/DL (60-110)
== END ==
LOC: M SFHCCLAY 14:17
PROVIDERS: ATTEND Family Medicine
DX: E78.5 Hyperlipidemia, unspecified (principal); R73.01 Impaired fasting glucose